=== PATIENT | female | born 2000 | race Two or more races ===

== ENCOUNTER 2022-08-19 13:42 | Emergency (ER) | payer MEDICAID ==
[~2022-08-19] VITALS: Ht 175.3 cm; Wt 49.5 kg
[2022-08-19] MEDS ORDERED: FAMOTIDINE (10MG/ML) 2ML VL IV ONE (14:00)
[2022-08-19] MEDS ORDERED: MAALOX PLUS or MAALOX 30 ML PO ONE (14:00)
[2022-08-19] MEDS ORDERED: ONDANSETRON HCL 4 MG/2 ML VIAL IV ONE (14:00)
[2022-08-19 14:22] LABS: Basophils # (auto) 0 10 ^3/uL (0-0.2); Basophils % (auto) 0.4 % (0.0-2.0); Eosinophils # (auto) 0 10 ^3/uL (0-0.8); Eosinophils % (auto) 0.4 % (0.0-7.0); Hematocrit 39.3 % (36.0-46.0); Hemoglobin 12.9 g/dL (12.2-16.2); Lymphocytes # (auto) 0.8 10 ^3/uL (0.4-5.4); Lymphocytes % (auto) 9.7 % (10.0-50.0); Mean Corpuscular Hemoglobin 27.5 pg (28.0-32.0); Mean Corpuscular Hgb Conc. 32.8 g/dL (32.0-36.0); Mean Corpuscular Volume 83.8 fL (80.0-100.0); Monocytes # (auto) 0.4 10 ^3/uL (0-1.3); Monocytes % (auto) 4.8 % (0.0-12.0); Neutrophils # (auto) 7.4 10 ^3/uL (1.6-8.6); Neutrophils % (auto) 84.7 % (37.0-80.0); Red Blood Cells 4.69 10^6/uL (4.0-5.20); Red Cell Distribution Width 14.6 % (11.8-14.3); White Blood Cell 8.7 10^3/uL (4.4-10.8)
[2022-08-19 14:29] LABS: Albumin 3.8 g/dL (3.4-5.0); BUN/Creatinine Ratio 16.5; Calcium 9.3 mg/dL (8.5-10.1); Potassium 3.5 mmol/L (3.5-5.1)
[2022-08-19 14:32] LABS: Bilirubin, Total 0.7 mg/dL (0.2-1.0); Total Protein 7.5 g/dL (6.4-8.2)
[2022-08-19] MEDS ORDERED: HYDROcodone-ACET 5/325MG TAB PO ONE ×2 (15:00→20:15)
[2022-08-19] MEDS ORDERED: SODIUM CHLORIDE 0.9% 1,000 ML IV ONE (15:00)
[2022-08-19 18:58] LABS: Urine Bacteria FEW /hpf (None Seen); Urine Blood 2+ /uL (Negative); Urine Hyaline Cast FEW /lpf (0 - 2); Urine Mucus FEW (None Seen); Urine Specific Gravity 1.029 (1.001-1.035); Urine WBC 10 /hpf (0 - 5)
[2022-08-19 19:30] VITALS: BP 116/61
== END 2022-08-19 20:59 | disposition home or self-care (01) ==
LOC: ER 13:42
DX: R11.2 Nausea with vomiting, unspecified (principal); G89.29 Other chronic pain; M54.9 Dorsalgia, unspecified; J45.909 Unspecified asthma, uncomplicated
CPT/HCPCS: 36415; 71046; 72070; 72100; 80053; 81001; 84702; 85025; 96361; 96374; 96375; 99284; J2405; J3490; J7030

== ENCOUNTER 2022-09-02 20:10 | Emergency (ER) | payer MEDICAID ==
[~2022-09-02] VITALS: Ht 154.9 cm; Wt 48.3 kg
[2022-09-02 21:52] LABS: Urine Bacteria NONE SEEN /hpf (None Seen); Urine Blood Negative /uL (Negative); Urine Mucus FEW (None Seen); Urine Specific Gravity 1.007 (1.001-1.035); Urine WBC 16 /hpf (0 - 5)
[2022-09-02 22:15] LABS: Basophils # (auto) 0 10 ^3/uL (0-0.2); Basophils % (auto) 0.6 % (0.0-2.0); Eosinophils # (auto) 0.1 10 ^3/uL (0-0.8); Eosinophils % (auto) 1.1 % (0.0-7.0); Hematocrit 37.9 % (36.0-46.0); Hemoglobin 12.5 g/dL (12.2-16.2); Lymphocytes # (auto) 1.5 10 ^3/uL (0.4-5.4); Lymphocytes % (auto) 19.5 % (10.0-50.0); Mean Corpuscular Hemoglobin 27.8 pg (28.0-32.0); Mean Corpuscular Hgb Conc. 32.9 g/dL (32.0-36.0); Mean Corpuscular Volume 84.7 fL (80.0-100.0); Monocytes # (auto) 0.5 10 ^3/uL (0-1.3); Monocytes % (auto) 6.3 % (0.0-12.0); Neutrophils # (auto) 5.6 10 ^3/uL (1.6-8.6); Neutrophils % (auto) 72.5 % (37.0-80.0); Red Blood Cells 4.48 10^6/uL (4.0-5.20); Red Cell Distribution Width 14.5 % (11.8-14.3); White Blood Cell 7.7 10^3/uL (4.4-10.8)
[2022-09-02 22:18] LABS: Alcohol, Urine < 3.0 mg/dL (0-10); Amphetamine Screen, Urine NEGATIVE (NEGATIVE); Barbiturate Scree,Urine NEGATIVE (NEGATIVE); Benzodiazephine Screen, Urine NEGATIVE (NEGATIVE); Cannabinoid Screen, Urine NEGATIVE (NEGATIVE); Cocaine Screen, Urine NEGATIVE (NEGATIVE); Opiate Scree,Urine NEGATIVE (NEGATIVE); Phencyclidine Screen, Urine NEGATIVE (NEGATIVE)
[2022-09-02 22:32] LABS: Alanine Aminotransferase 29 U/L (13-56); Albumin 3.8 g/dL (3.4-5.0); Anion Gap 7 (5-15); Aspartate Aminotransferase 15 U/L (15-37); BUN/Creatinine Ratio 11.5; Blood Alcohol < 3.0 mg/dL (0-5); Blood Urea Nitrogen 10 mg/dL (7-18); Calcium 9.2 mg/dL (8.5-10.1); Carbon Dioxide 24 mmol/L (21-32); Chloride 111 mmol/L (98-107); GFR African American 107 mL/min; GFR Non-African American 88 mL/min; Glucose 96 mg/dL (74-106); Potassium 3.8 mmol/L (3.5-5.1); Salicylate < 1.7 mg/dL (2.8-20.0); Sodium 142 mmol/L (136-145)
[2022-09-02 22:35] LABS: Alkaline Phosphatase 70 U/L (45-117); Bilirubin, Total 0.4 mg/dL (0.2-1.0); Total Protein 7.5 g/dL (6.4-8.2)
[2022-09-02 22:37] LABS: Acetaminophen < 2.0 ug/mL (10-30)
[2022-09-03 04:00] VITALS: BP 124/70
== END 2022-09-03 04:52 | disposition home or self-care (01) ==
LOC: ER 20:10
DX: F43.20 Adjustment disorder, unspecified (principal); J45.909 Unspecified asthma, uncomplicated; F32.9 Major depressive disorder, single episode, unspecified
CPT/HCPCS: 36415; 80053; 80307; 80320; 80329; 81001; 84702; 85025

== ENCOUNTER 2023-07-23 00:37 | Emergency (ER) | payer MEDICAID ==
[~2023-07-23] VITALS: Ht 157.5 cm; Wt 50.6 kg
[2023-07-23 03:56] VITALS: BP 110/62; PULSE 74; RESP 17; TEMP 98.2; O2SAT 99
== END 2023-07-23 04:03 | disposition home or self-care (01) ==
LOC: ER 00:37
DX: S06.0X0A Concussion without loss of consciousness, initial encounter (principal); J45.909 Unspecified asthma, uncomplicated; F32.9 Major depressive disorder, single episode, unspecified; F15.90 Other stimulant use, unspecified, uncomplicated; Z87.891 Personal history of nicotine dependence; W22.01XA Walked into wall, initial encounter; Y93.89 Activity, other specified; Y92.092 Bedroom in other non-institutional residence as the place of occurrence of the external cause; Y99.8 Other external cause status
CPT/HCPCS: 70450

== ENCOUNTER 2024-11-05 11:04 | Emergency (ER) | payer MEDICAID ==
[~2024-11-05] VITALS: Ht 157.5 cm; Wt 52.3 kg
--- NOTE | 2024-11-05 11:19 | ED.PDOC ---
FIRST OFFICER HPI Comments 24 year old female accompanied by boyfriend presents to the ED with chief complaint of vaginal bleeding and abdominal pain. Patient reports that she had taken an pill prescribed by [facility] on Monday and has been since the beginning of September. Patient relays that after taking the pill she started to experiencing suprapubic abdominal cramping with associated vaginal bleeding, nausea, and vomiting. Patient states that her symptoms have continued since then. Patient denies any diarrhea, hematemesis, dysuria, hematuria, fever, or chills. Chief Complaint: Vaginal Bleed Time Seen by MD: 11:15 Reviewed Notes: Nurses Notes, Medications, Allergies Allergies: Coded Allergies: NO KNOWN ALLERGIES (Unverified , 08/03/12) Home Meds Active Scripts Ondansetron Odt 4MG Tab (ZOFRAN PO) 4 Mg Tb, 4 MG PO Q8HP PRN for 5 Days, #15 TAB ODT TAB-DISSOLVE IN MOUTH, THEN SWALLOW Prov:KEIRA AUGUSTINE MD 11/05/24 Pantoprazole Sodium Sesquihydr (Protonix) 40 Mg Tab, 40 MG PO DAILY, #30 TAB Prov:KEIRA AUGUSTINE MD 11/05/24 Information Source: Patient, Significant Other Mode of Arrival: Ambulatory Timing: Days Prehospital treatment: None Severity: Moderate Bleeding Quality: Bright Red Onset Of Mass/Bleeding: Other (Took pill) Sexual Activity: Sexually Active Last Consensual Ventana: Unknown Control: None Associated Signs and Symptoms: Vaginal Bleeding, Abdominal Pain, N/V, Cramping Past Medical History PAST MEDICAL HISTORY: Asthma, Depression Past Medical History (Other): Scoliosis, chronic back pain Surgical History (Other): Back surgery FABRIC CUTTER History: No Pertinent FABRIC CUTTER History Family History Family History: No family hx of DM, No family hx of Heart raffy Social History Smoker: Other (Vapes) Alcohol: Occasionally Drugs: Marijuana Lives In: Home Constitutional: denies: chills, diaphoresis, fatigue, fever, malaise, sweats, w eakness, others EENTM: denies: blurred vision, double vision, ear bleeding, ear discharge, ear drainage, ear pain, ear ringing, eye pain, eye redness, hearing loss, mouth pain, mouth swelling, nasal discharge, nose bleeding, nose congestion, nose pain, photophobia, tearing, throat pain, throat swelling, voice changes, others Respiratory: denies: cough, hemoptysis, orthopnea, SOB at rest, shortness of breath, SOB with excertion, stridor, wheezing, others Cardiovascular: denies: chest pain, dizzy spells, diaphoresis, Dyspnea on exertion, edema, irregular heart beat, left arm pain, lightheadedness, palpitations, PND, syncope, others Gastrointestinal: reports: abdominal pain, nausea, vomiting; denies: abdomen distended, blood streaked bowels, constipated, diarrhea, dysphagia, difficulty swallowing, hematemesis, melena, poor appetite, poor fluid intake, rectal bleed ing, rectal pain, others Genitourinary: reports: abnormal vagina bleeding, ; denies: burning, dyspareunia, dysuria, flank pain, frequency, hematuria, incontinence, pain, vagina discharge, urgency, others Neurological: denies: dizziness, fainting, headache, left sided numbness, left sided weakness, numbness, paresthesia, pre-existing deficit, right sided numbness, right sided weakness, seizure, speech problems, tingling, tremors, weakness, others Musculoskeletal: denies: back pain, gout, joint pain, joint swelling, muscle pain, muscle stiffness, neck pain, others Integumetry: denies: bruises, change in color, change in hair/nails, dryness, laceration, lesions, lumps, rash, wounds, others Allergic/Immunocompromised: denies: Difficulty Healing, Frequent Infections, Hives, Itching, others Hematologic/Lymphatic: denies: anemia, blood clots, easy bleeding, easy bruising, swollen glands, others Endocrine: denies: excessive hunger, excessive sweating, excessive thirst, excessive urination, flushing, intolerance to cold, intolerance to heat, unexplained weight gain, unexplained weight loss, others Psychiatric: denies: anxiety, bipolar disorder, depression, hopeless, panic disorder, schizophrenia, sleepless, suicidal, others All Other Systems: Reviewed and Negative Physical Exam General Appearance: Mild Distress HEENT: Normal ENT Inspection, Pharynx Normal, TMs Normal Neck: Full Range of Motion, Non-Tender, Normal, Normal Inspection Respiratory: Chest Non-Tender, Lungs Clear, No Accessory Muscle Use, No Respiratory Distress, Normal Breath Sounds Cardiovascular: No Edema, No JVD, No Murmur, No Gallop, Normal Peripheral Pulses, Regular Rate/Rhythm Breast Exam: Deferred Gastrointestinal: No Organomegaly, Non Tender, No Pulsatile Mass, Normal Bowel Sounds, Soft Genitalia: Deferred Pelvic: Deferred Rectal: Deferred Extremities: No calf tenderness, Normal capillary refill, Normal inspection, Normal range of motion, Non-tender, No pedal edema Musculoskeletal : Apperance: Normal Neurologic: Alert, appeals representative II-XII nml as Tested, No Motor Deficits, Normal Affect, Normal Mood, No Sensory Deficits Cerebellar Function: Normal Reflexes: Normal Skin: Dry, Normal Color, Warm Lymphatic: No Adenopathy Was a procedure done? Was a procedure done?: No Differential Diagnosis (FABRIC CUTTER) Vaginal Bleeding: - Complete, UTI X-Ray, Labs, Meds, VS Vital Signs Date Time Temp Pulse Resp B/P (MAP) Pulse Ox O2 Delivery O2 Flow Rate FiO2 11/05/24 14:13 60 18 100 Room Air* 0 21 11/05/24 14:13 98.0 60 18 118/74 (89) 100 98.0 11/05/24 11:15 97.6 74 20 106/74 (85) 100 97.6 Lab Test 11/05/24 11:27 Range/Units White Blood Count 10.1 4.4-10.8 10^3/uL Red Blood Count 4.80 4.0-5.20 10^6/uL Hemoglobin 14.0 12.2-16.2 g/dL Hematocrit 41.2 36.0-46.0 % Mean Corpuscular Volume 85.9 80.0-100.0 fL Mean Corpuscular Hemoglobin 29.2 28.0-32.0 pg Mean Corpuscular Hemoglobin Concent 34.0 32.0-36.0 g/dL Red Cell Distribution Width 13.7 11.8-14.3 % Platelet Count 310 140-450 10^3/uL Mean Platelet Volume 8.5 6.9-10.8 fL Neutrophils (%) (Auto) 82.7 H 37.0-80.0 % Lymphocytes (%) (Auto) 12.2 10.0-50.0 % Monocytes (%) (Auto) 4.0 0.0-12.0 % Eosinophils (%) (Auto) 0.7 0.0-7.0 % Basophils (%) (Auto) 0.4 0.0-2.0 % Neutrophils # (Auto) 8.3 1.6-8.6 10 ^3/uL Lymphocytes # (Auto) 1.2 0.4-5.4 10 ^3/uL Monocytes # (Auto) 0.4 0-1.3 10 ^3/uL Eosinophils # (Auto) 0.1 0-0.8 10 ^3/uL Basophils # (Auto) 0 0-0.2 10 ^3/uL Nucleated Red Blood Cells 0.0 % Sodium Level 140 136-145 mmol/L Potassium Level 3.2 L 3.5-5.1 mmol/L Chloride Level 108 H 98-107 mmol/L Carbon Dioxide Level 18 L 20-31 mmol/L Anion Gap 14 5-15 Blood Urea Nitrogen 7 L 9-23 mg/dL Creatinine 0.76 0.550-1.02 mg/dL Glomerular Filtration Rate Calc 114 >90 mL/min BUN/Creatinine Ratio 9.2 L 10.0-20.0 Serum Glucose 119 H 74-106 mg/dL Calcium Level 10.0 8.7-10.4 mg/dL Beta HCG, Quantitative 9276.1 H 1.5-4.2 mIU/mL Current Medications Medications (Trade) Dose Ordered Sig/Nico Route Start Time Stop Time Status Last Admin Sodium Chloride 1,000 ml @ 1,000 mls/hr Q1H ONCE IVB 11/05/24 11:30 11/05/24 12:29 DC 11/05/24 14:07 Pantoprazole Sodium (Protonix) 40 mg ONCE ONCE IV 11/05/24 11:30 11/05/24 11:31 DC 11/05/24 14:07 Prochlorperazine Edisylate (Compazine Inj) 10 mg ONCE ONCE IV 11/05/24 11:30 11/05/24 11:31 DC 11/05/24 14:07 OB US indicates: No intrauterine is visualized at this time. Recommend correlation with beta HCG /short-term follow-up pelvic ultrasound. At this time, the patient is being discharged The CBC and chemistry panel are within normal limits The patient's quantitative hCG is 9276.1 The patient was told that she needs to have her quantitative repeated next couple of days. The patient was given Compazine 10 mg IV push and the patient was given Protonix 40 mg IV push The patient was given a 1 L bolus of normal saline At this time, the patient was being discharged Images Reviewed?: Images reviewed and evaluated by me Time of 1ST Reevaluation: 12:15 Reevaluation 1ST: Unchanged Patient Education/Counseling: Diagnosis, Treatment Family Education/Counseling: Diagnosis, Treatment Additional Information -Reviewed patient's previous visit(s): 07/23/23 for concussion - The following tests were ordered, and results were reviewed by me: Beta HCG Quant, CBC, BMP, UA - Additional information was gathered from interviewing the following independent Historian: Boyfriend - I reviewed and agreed with the following test results read by other provider: - I discussed treatments and results with medical personnel and: patient and boyfriend Comprehensive systems review obtained and negative except for what is stated in the HPI. Departure 1 Departure Time of Disposition: 14:34 Impression: Primary Impression: Nausea & vomiting Qualified Codes: R11.14 - Bilious vomiting Additional Impression: Medication reaction Qualified Codes: T50.905A - Adverse effect of unspecified drugs, medicaments and biological substances, initial encounter Disposition: HOME / SELF CARE / HOMELESS Condition: Fair e-Prescriptions Ondansetron Odt 4MG Tab (ZOFRAN PO) 4 Mg Tb 4 MG PO Q8HP PRN for 5 Days, #15 TAB ODT TAB-DISSOLVE IN MOUTH, THEN SWALLOW Prov: KEIRA AUGUSTINE MD 11/05/24 Pantoprazole Sodium Sesquihydr (Protonix) 40 Mg Tab 40 MG PO DAILY, #30 TAB Prov: KEIRA AUGUSTINE MD 11/05/24 Discharged With: Self, Significant Other Critical Care Note Critical Care Time?: No Stability Stability form required: No Heart Score Heart Score: Heart Score Response (Comments) Value History N/A 0 EKG N/A 0 Age N/A 0 Risk Factors N/A 0 Troponin N/A 0 Total 0 I personally scribed for KEIRA AUGUSTINE MD ([email or web address]) on 11/05/24 at 11:19. Electronically submitted by Tam Kaplan ([email or web address]). I personally scribed for KEIRA AUGUSTINE MD ([email or web address]) on 11/05/24 at 11:24. Electronically submitted by Tam Kaplan ([email or web address]). I personally scribed for KEIRA AUGUSTINE MD ([email or web address]) on 11/05/24 at 13:59. Electronically submitted by Tam Kaplan ([email or web address]). KEIRA AUGUSTINE MD Nov 05, 2024 11:19
[2024-11-05 12:03] LABS: Basophils # (auto) 0 10 ^3/uL (0-0.2); Basophils % (auto) 0.4 % (0.0-2.0); Eosinophils # (auto) 0.1 10 ^3/uL (0-0.8); Eosinophils % (auto) 0.7 % (0.0-7.0); Hematocrit 41.2 % (36.0-46.0); Lymphocytes # (auto) 1.2 10 ^3/uL (0.4-5.4); Lymphocytes % (auto) 12.2 % (10.0-50.0); Mean Corpuscular Hemoglobin 29.2 pg (28.0-32.0); Mean Corpuscular Volume 85.9 fL (80.0-100.0); Monocytes # (auto) 0.4 10 ^3/uL (0-1.3); Neutrophils # (auto) 8.3 10 ^3/uL (1.6-8.6); Neutrophils % (auto) 82.7 % (37.0-80.0); Platelet Count (auto) 310 10^3/uL (140-450); Red Cell Distribution Width 13.7 % (11.8-14.3); White Blood Cell 10.1 10^3/uL (4.4-10.8)
[2024-11-05 12:13] LABS: Sodium 140 mmol/L (136-145)
[2024-11-05 12:14] LABS: Anion Gap 14 (5-15); Chloride 108 mmol/L (98-107); Potassium 3.2 mmol/L (3.5-5.1)
[2024-11-05 12:16] LABS: Carbon Dioxide 18 mmol/L (20-31)
[2024-11-05 12:19] LABS: BUN/Creatinine Ratio 9.2 (10.0-20.0)
[2024-11-05 12:20] LABS: Blood Urea Nitrogen 7 mg/dL (9-23); Glucose 119 mg/dL (74-106)
--- NOTE | 2024-11-05 13:56 | DVH ---
OB ULTRASOUND <14 WEEKS: HISTORY: The patient was status post morning after pill TECHNIQUE: Multiple real-time grayscale sonographic images of the pelvis with duplex Doppler color f low, spectral and M-mode analysis. TRANSDUCERS: Transabdominal. FINDINGS: The uterus measures 9.7 x 6.1 x 5.9 cm The cervix not well visualized. Bilateral ovaries not well visualized. No intrauterine is visualized IMPRESSION: No intrauterine is visualized at this time. Recommend correlation with beta HCG /short-ter m follow-up pelvic ultrasound.
[2024-11-05] MEDS: PANTOPRAZOLE 40 MG/10 ML VIAL INJ IV ONE (14:07)
[2024-11-05] MEDS: SODIUM CHLORIDE 0.9% 1,000 ML IVB ONE (14:07)
[2024-11-05] MEDS: PROCHLORPERAZINE EDISYLATE 5 MG/ML 2ML VIAL IV ONE (14:07)
[2024-11-05 14:13] VITALS: BP 118/74; PULSE 60; RESP 18; TEMP 98; O2SAT 100
[2024-11-05] MEDS ORDERED: ZOFR4T PO (14:31)
[2024-11-05] MEDS ORDERED: PANT40TA2 PO (14:31)
== END 2024-11-05 14:48 | disposition home or self-care (01) ==
LOC: ER 11:04
DX: O46.90 Antepartum hemorrhage, unspecified, unspecified trimester (principal); O21.9 Vomiting of pregnancy, unspecified; O03.4 Incomplete spontaneous abortion without complication; J45.909 Unspecified asthma, uncomplicated; F32.A Depression, unspecified; F17.290 Nicotine dependence, other tobacco product, uncomplicated; Z79.899 Other long term (current) drug therapy; Z98.890 Other specified postprocedural states
CPT/HCPCS: 36415; 76801; 80048; 84702; 85025; 96361; 96374; 96375; 99285; J0780; J2470; J7030